=== PATIENT | female | born 1945 ===

== ENCOUNTER 2016-05-16 15:31 | Inpatient (IN) | payer BC, MEDICARE ==
[2016-05-16] MEDS ORDERED: Sodium Chloride 0.9% 1,000 ML IV ONE (15:46)
[2016-05-16 16:12] LABS: BASO % 0.4 % (0.0-2.0); EOS % 0.1 % (0.0-4.0); HEMATOCRIT 48.2 % (34.0-47.0); LYMPH # 0.7 K/uL (1.0-4.3); LYMPH % 5.9 % (20.0-40.0); MEAN CELL VOLUME 86.8 fL (81.0-99.0); MEAN CORPUSCULAR HEMOGLOBIN 28.5 pg (27.0-31.0); MEAN CORPUSCULAR HGB CONC 32.8 g/dL (33.0-37.0); MEAN PLATELET VOLUME 9.4 fL (7.2-11.7); MONO # 0.7 K/uL (0.0-0.8); NRBC % 0.2 % (0.0-2.0); PLATELET COUNT 263 K/uL (130-400)
[2016-05-16] MEDS ORDERED: Sodium Chloride 0.9% 1,000 ML ONE (16:14)
[2016-05-16 16:17] LABS: WHITE BLOOD COUNT 11.5 K/uL (4.8-10.8)
[2016-05-16 16:30] LABS: POTASSIUM 4.4 mmol/L (3.6-5.2)
[2016-05-16 16:32] LABS: BILIRUBIN,TOTAL 1.1 mg/dL (0.2-1.3)
[2016-05-16 16:33] LABS: ALB/GLOB RATIO 1.1 (1.0-2.1); CALCIUM 11.1 mg/dl (8.6-10.4)
--- NOTE | 2016-05-16 16:40 | RAD ---
HISTORY: SOB COMPARISON: 07/16/2015. TECHNIQUE: Chest PA and lateral FINDINGS: LUNGS: No focal airspace opacity. PLEURA: No significant pleural effusion identified. No pneumothorax apparent.Biapical pleural parenchymal thickening noted. CARDIOVASCULAR: Normal. OSSEOUS STRUCTURES: The osseous structures demonstrate degenerative changes. VISUALIZED UPPER ABDOMEN: Normal. OTHER FINDINGS: None. IMPRESSION: No focal airspace opacity.
--- NOTE | 2016-05-16 16:44 | C.PDOC ---
History Of Present Illness 70-year-old female, referred to the ED by PMD for abnormal EKG. Patient was seen for in her PMD office for nausea/vomiting, where she had an EKG done. Patient states her doctor thought that EKG was abnormal resulting in her being sent to the ED for evaluation. No other complaints at this time. Time Seen by Provider: 05/16/16 15:45 Chief Complaint (Nursing): Abdominal Pain History Per: Patient History/Exam Limitations: no limitations Onset/Duration Of Symptoms: Days (1) Location Of Pain/Discomfort: Diffuse Radiation Of Pain To:: Back Additional History Per: Patient Past Medical History Reviewed: Historical Data, Nursing Documentation, Vital Signs Vital Signs: Last Vital Signs Temp 97.4 F L 05/16/16 15:42 Pulse 92 H 05/16/16 15:42 Resp 18 05/16/16 15:42 BP 187/97 H 05/16/16 15:42 Pulse Ox 99 05/16/16 18:35 - Medical History PMH: Arthritis, HTN Other Surgeries: Hysterectomy Family History: States: Unknown Family Hx - Social History Hx Alcohol Use: No Hx Substance Use: No - Immunization History Hx Tetanus Toxoid Vaccination: No Hx Influenza Vaccination: No Hx Pneumococcal Vaccination: No Review Of Systems Except As Marked, All Systems Reviewed And Found Negative. Constitutional: Negative for: Fever, Chills Cardiovascular: Negative for: Chest Pain Respiratory: Negative for: Shortness of Breath Gastrointestinal: Positive for: Nausea, Vomiting Musculoskeletal: Negative for: Back Pain Skin: Negative for: Rash Neurological: Negative for: Weakness, Numbness, Headache, Dizziness Physical Exam - Physical Exam Appears: Non-toxic, No Acute Distress Skin: Warm, Dry, No Rash Head: Atraumatic, Normacephalic Eye(s): bilateral: Normal Inspection, PERRL Nose: Normal Oral Mucosa: Moist Lips: Normal Appearing Neck: Normal ROM Cardiovascular: Rhythm Regular Respiratory: Normal Breath Sounds, No Accessory Muscle Use Gastrointestinal/Abdominal: Soft, Tenderness (mild, diffuse), No Guarding, No Rebound Extremity: Normal ROM Neurological/Psych: Oriented x3, Normal Speech ED Course And Treatment - Laboratory Results Result Diagrams: 05/16/16 16:06 05/16/16 16:06 Lab Interpretation: No Acute Changes ECG: Interpreted By Me ECG Rhythm: Sinus Rhythm, ST/T Changes ECG Interpretation: No Acute Changes Rate From EC O2 Sat by Pulse Oximetry: 99 Pulse Ox Interpretation: Normal - Radiology CXR: Interpreted by Me CXR Interpretation: Yes: No Acute Disease Progress Note: Treated with IVF NSS, Treated with rocephin 1 gm IV Reassessment Condition: Improved - Physician Consult Information Physician Contacted: Handy Estevez Outcome Of Conversation: admit Disposition Discussed With DrTj: Handy Estevez Doctor Will See Patient In The: Hospital - Disposition Disposition: HOSPITALIZED Disposition Time: 19:00 Condition: STABLE - POA Present On Arrival: None - Clinical Impression Clinical Impression: Abdominal pain, Acute electrocardiogram changes - Scribe Statement The provider has reviewed the documentation as recorded by the Scribshaka Madden All medical record entries made by the Scribe were at my direction and personally dictated by me. I have reviewed the chart and agree that the record accurately reflects my personal performance of the history, physical exam, medical decision making, and the department course for this patient. I have also personally directed, reviewed, and agree with the discharge instructions and disposition. Decision To Admit - Pt Status Changed To: Hospital Disposition Of: Observation - . Bed Request Type: Telemetry Admitting Physician: Handy Estevez Patient Diagnosis: Abdominal pain, Acute electrocardiogram changes
[2016-05-16 16:45] LABS: TROPONIN I 0.023 ng/mL (0.00-0.120)
[2016-05-16 17:47] LABS: NEUTROPHIL 82 % (50-75); TOTAL CELLS COUNTED 100
[2016-05-16 17:55] LABS: RBC URINE 8 /hpf (0-3); URINE BACTERIA FEW (<OCC); URINE BILIRUBIN NEGATIVE (NEGATIVE); URINE BLOOD 1+ (NEGATIVE); URINE COLOR Yellow (YELLOW); URINE GLUCOSE (UA) NORMAL (Normal); URINE KETONE NEGATIVE (NEGATIVE); URINE LEUKOCYTE ESTERASE 3+ Leu/uL (Negative); URINE PROTEIN NEGATIVE (NEGATIVE); URINE UROBILINOGEN NORMAL mg/dL (0.2-1.0); WBC URINE 65 /hpf (0-5)
[2016-05-16] MEDS ORDERED: cefTRIAXone IV 1 gm in Dextros 50 ML IV ONE (18:01)
[2016-05-16] MEDS ORDERED: cefTRIAXone IV 1 gm in Dextros 50 ML IVPB ONE (18:07)
--- NOTE | 2016-05-16 18:49 | CT ---
PROCEDURE: CT Abdomen and Pelvis without intravenous or oral contrast HISTORY: Left flank pain. COMPARISON: None. TECHNIQUE: Technique Contiguous axial images of the abdomen and pelvis without intravenous or oral contrast. Radiation dose: Total exam DLP = 655.90 mGy-cm. FINDINGS: LOWER THORAX: Unremarkable. LIVER: Unremarkable. GALLBLADDER AND BILE DUCTS: Unremarkable. PANCREAS: Unremarkable. No ductal dilatation. SPLEEN: Unremarkable. No splenomegaly. ADRENALS: Unremarkable. KIDNEYS AND URETERS: Unremarkable. No hydronephrosis. BLADDER: Unremarkable. No calculus. REPRODUCTIVE: Surgically absent. APPENDIX: Unremarkable. Normal appendix. STOMACH AND BOWEL: Unremarkable. No obstruction. No gross mural thickening. PERITONEUM: Unremarkable. No significant fluid collection. No free air. LYMPH NODES: Unremarkable. No enlarged lymph nodes. VASCULATURE: Unremarkable. No aortic aneurysm. BONES: No acute fracture. Scoliosis, secondary degenerative change at multiple levels. OTHER FINDINGS: None . IMPRESSION: No significant or acute findings to account for/ related to the clinical presentation.
[2016-05-16] MEDS ORDERED: Pneumococcal 23-Valent Vaccine IM ONE (23:04)
[2016-05-17] MEDS ORDERED: Enoxaparin 40 mg Syringe SC SCH (10:00)
[2016-05-17] MEDS ORDERED: Pneumococcal 23-Valent Vaccine IM ONE (10:00)
[2016-05-17] MEDS ORDERED: Influenza Virus Vaccine 45 mcg/0.5 ml Syr IM ONE (10:00)
[2016-05-17 11:40] LABS: CHLORIDE 100 mmol/L (98-107); SODIUM 138 mmol/L (132-148)
[2016-05-17 11:41] LABS: POTASSIUM 3.1 mmol/L (3.6-5.2)
[2016-05-17 11:43] LABS: ALB/GLOB RATIO 1.2 (1.0-2.1); ALKALINE PHOSPHATASE 89 U/L (38-126); ALT/SGPT 28 U/L (9-52); AST/SGOT 22 U/L (14-36); BILIRUBIN,TOTAL 0.8 mg/dL (0.2-1.3); BLOOD UREA NITROGEN 21 mg/dL (7-17); CALCIUM 10.1 mg/dl (8.6-10.4); CARBON DIOXIDE 22 mmol/L (22-30); GFR AFRICAN-AMERICAN > 60; GLUCOSE,RANDOM 106 mg/dL (65-105); TOTAL PROTEIN 7.3 g/dL (6.3-8.3)
[2016-05-17] MEDS ORDERED: Potassium Chloride 20 mEq 100 ML IVPB ONE (12:02)
[2016-05-17 12:13] LABS: HEMATOCRIT 43.2 % (34.0-47.0); LYMPH # 0.5 K/uL (1.0-4.3); LYMPH % 4.7 % (20.0-40.0); MEAN CELL VOLUME 86.3 fL (81.0-99.0); MEAN CORPUSCULAR HEMOGLOBIN 29.4 pg (27.0-31.0); MEAN CORPUSCULAR HGB CONC 34.1 g/dL (33.0-37.0); MEAN PLATELET VOLUME 9.4 fL (7.2-11.7); MONO # 0.7 K/uL (0.0-0.8); MONO % 6.9 % (0.0-10.0); NRBC % 0.2 % (0.0-2.0); PLATELET COUNT 195 K/uL (130-400); RED CELL DISTRIBUTION WIDTH 13.6 % (11.5-14.5); WHITE BLOOD COUNT 10.1 K/uL (4.8-10.8)
--- NOTE | 2016-05-17 12:26 | CP.PCM.HP ---
History of Present Illness - History of Present Illness History of Present Illness: 70 years old female with PMHx significant for HTN. Patient presented to Dr Estevez' office ocmplaining of nausea, vomiting, diarrhea abdominal pain and generalized weakness. Initial evaluation showed Epigastric tenderness and tachycardia. ECG read Acute DC. Ambulance called and patient sent to the Hospital for further evaluation. Initial evaluation in the ER showed Low Bicarbonate (Metabolic Acidosis), High WBC count with Left Shift and UA with signs of infection (UTI). Present on Admission - Present on Admission Any Indicators Present on Admission: No Review of Systems - Review of Systems Systems not reviewed;Unavailable: Acuity of Condition - Constitutional Constitutional: Fatigue, Malaise, Weakness - Cardiovascular Cardiovascular: Dyspnea, Dyspnea on Exertion, Rapid Heart Rate - Respiratory Respiratory: Dyspnea - Gastrointestinal Gastrointestinal: Abdominal Pain, Change in Bowel Habits, Diarrhea, Dyspepsia, Vomiting Past Patient History - Infectious Disease Hx of Infectious Diseases: None - Past Medical History & Family History Past Medical History?: Yes - Past Social History Smoking Status: Never Smoked - CARDIAC Hx Hypertension: Yes - PULMONARY Hx Respiratory Disorders: No - NEUROLOGICAL Hx Neurological Disorder: No - HEENT Hx Cataracts: Yes - RENAL Hx Chronic Kidney Disease: No - ENDOCRINE/METABOLIC Hx Endocrine Disorders: No - HEMATOLOGICAL/ONCOLOGICAL Hx Blood Disorders: No - INTEGUMENTARY Hx Dermatological Problems: No - MUSCULOSKELETAL/RHEUMATOLOGICAL Hx Arthritis: Yes Hx Falls: No - GASTROINTESTINAL Hx Gastrointestinal Disorders: No - GENITOURINARY/GYNECOLOGICAL Hx Genitourinary Disorders: No - PSYCHIATRIC Hx Psychophysiologic Disorder: No Hx Substance Use: No - SURGICAL HISTORY Hx Hysterectomy: Yes - ANESTHESIA Hx Anesthesia: Yes Hx Anesthesia Reactions: No Hx Malignant Hyperthermia: No Meds Allergies/Adverse Reactions: Allergies Allergy/AdvReac Type Severity Reaction Status Date / Time No Known Allergies Allergy Verified 07/16/15 13:34 Physical Exam - Constitutional Appears: In Acute Distress - Head Exam Head Exam: ATRAUMATIC, NORMAL INSPECTION, NORMOCEPHALIC - Eye Exam Eye Exam: EOMI, Normal appearance, PERRL - ENT Exam ENT Exam: Mucous Membranes Moist, Normal Exam - Neck Exam Neck exam: Positive for: Normal Inspection - Respiratory Exam Respiratory Exam: Clear to Auscultation Bilateral, Prolonged Expiratory Phase - Cardiovascular Exam Cardiovascular Exam: Tachycardia, REGULAR RHYTHM, +S1, +S2 - GI/Abdominal Exam GI & Abdominal Exam: Soft, Tenderness - Extremities Exam Extremities exam: Positive for: full ROM, normal inspection - Psychiatric Exam Psychiatric exam: Anxious Results - Vital Signs Recent Vital Signs: Last Vital Signs Temp 98.3 F 05/17/16 09:50 Pulse 93 H 05/17/16 09:50 Resp 20 05/17/16 08:53 BP 121/75 05/17/16 10:30 Pulse Ox 98 05/17/16 08:53 - Labs Result Diagrams: 05/17/16 11:20 05/17/16 11:20 Labs: Laboratory Results - last 24 hr 05/17/16 05/17/16 06:09 11:20 WBC 10.1 RBC 5.01 Hgb 14.7 Hct 43.2 MCV 86.3 MCH 29.4 MCHC 34.1 RDW 13.6 Plt Count 195 MPV 9.4 Neut % (Auto) 88.4 H Lymph % (Auto) 4.7 L [place] % (Auto) 6.9 Eos % (Auto) 0.0 Baso % (Auto) 0.0 Neut # 9.0 H Lymph # 0.5 L [place] # 0.7 Eos # 0.0 Baso # 0.0 Sodium 138 Potassium 3.1 L Chloride 100 Carbon Dioxide 22 Anion Gap 19 BUN 21 H Creatinine 0.7 Est GFR ( Amer) > 60 Est GFR (Non-Af Amer) > 60 Random Glucose 106 H Lactic Acid 1.3 Calcium 10.1 Total Bilirubin 0.8 AST 22 ALT 28 Alkaline Phosphatase 89 Total Creatine Kinase 50 CK-MB (Mass) 0.66 Troponin I, Quant 0.0240 Total Protein 7.3 Albumin 4.0 Globulin 3.4 Albumin/Globulin Ratio 1.2 Assessment & Plan (1) Abdominal pain Assessment and Plan: 1. Abdominal Pain. Nausea. Vomiting. Diarrhea. Dark stools. Leukocytosis. Neutrophilia. Metabolic acidosis. UTI. SIRS. Sepsis. CBC Diff. CMP. Blood Cultures x 2. Lactic acid. UA C&S. Stool C. Diff. CXR. GI evaluation. 2. Hypokalemia. Potassium replacement IV x 1, the PO. BMP in am. 3. Abnormal ECG. Cardiac enzymes negative x 3. Cardiology evaluation. 4. HTN. Continue same treatment. Status: Acute Priority: High
[2016-05-17 12:35] LABS: NEUTROPHIL 75 % (50-75); REACTIVE LYMPHOCYTES 2 % (0-0); TOTAL CELLS COUNTED 100
--- NOTE | 2016-05-17 13:19 | CP.PCM.CON ---
History of Present Illness - History of Present Illness History of Present Illness: Asked by Dr Velasco to see pt for vomiting , diarrhea, and black stools. 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 Pt reports 3 days of feeling ill with nausea, vomiting, diarrhea and weakness. She took pepto bismo;l yesterday and had black stools. N/V- multiple. Diarrhea- watery, mult x 3 days. Weakness.. Abdominal pain- epigastric x 3 days- crampy. Denies travel, antibiotics. Review of Systems - Constitutional Constitutional: Fever, Weakness. absent: Chills - EENT Eyes: absent: Blurred Vision Nose/Mouth/Throat: absent: Epistaxis - Cardiovascular Cardiovascular: Chest Pain, Dyspnea, Lightheadedness. absent: Palpitations - Respiratory Respiratory: absent: Cough, Dyspnea, Hemoptysis, Wheezing - Gastrointestinal Gastrointestinal: Abdominal Pain, Belching, Bloating, Change in Stool Character , Cramping, Diarrhea, Melena, Nausea, Vomiting. absent: Coffee Ground Emesis, Dysphagia, Hematemesis, Hematochezia - Genitourinary Genitourinary: absent: Hematuria - Musculoskeletal Musculoskeletal: absent: Arthralgias - Integumentary Integumentary: absent: Jaundice - Neurological Neurological: absent: Convulsions Past Patient History - Infectious Disease Hx of Infectious Diseases: None - Past Medical History & Family History Past Medical History?: Yes - Past Social History Smoking Status: Never Smoked - CARDIAC Hx Hypertension: Yes - PULMONARY Hx Respiratory Disorders: No - NEUROLOGICAL Hx Neurological Disorder: No - HEENT Hx Cataracts: Yes - RENAL Hx Chronic Kidney Disease: No - ENDOCRINE/METABOLIC Hx Endocrine Disorders: No - HEMATOLOGICAL/ONCOLOGICAL Hx Blood Disorders: No - INTEGUMENTARY Hx Dermatological Problems: No - MUSCULOSKELETAL/RHEUMATOLOGICAL Hx Arthritis: Yes Hx Falls: No - GASTROINTESTINAL Hx Gastrointestinal Disorders: No - GENITOURINARY/GYNECOLOGICAL Hx Genitourinary Disorders: No - PSYCHIATRIC Hx Psychophysiologic Disorder: No Hx Substance Use: No - SURGICAL HISTORY Hx Hysterectomy: Yes - ANESTHESIA Hx Anesthesia: Yes Hx Anesthesia Reactions: No Hx Malignant Hyperthermia: No Meds Allergies/Adverse Reactions: Allergies Allergy/AdvReac Type Severity Reaction Status Date / Time No Known Allergies Allergy Verified 07/16/15 13:34 - Medications Medications: Current Medications Amlodipine Besylate (Norvasc) 5 mg PO DAILY [facility] Last Admin: 05/17/16 10:30 Dose: 5 mg Carvedilol (Coreg) 12.5 mg PO Q12 [facility] Last Admin: 05/17/16 10:30 Dose: 12.5 mg Heparin Sodium (Porcine) (Heparin) 5,000 units SC Q12 [facility] Last Admin: 05/17/16 10:31 Dose: Not Given Hydrochlorothiazide (Hydrodiuril) 25 mg PO DAILY [facility] Last Admin: 05/17/16 10:30 Dose: 25 mg Ceftriaxone Sodium (Rocephin Iv 1 Gm Duplex) 50 mls @ 100 mls/hr IVPB Q24H [facility] Potassium Chloride (Potassium Chloride 20 Meq/100 Ml) 100 mls @ 50 mls/hr IVPB ONCE ONE Stop: 05/17/16 14:01 Last Admin: 05/17/16 13:03 Dose: 50 mls/hr Losartan Potassium (Cozaar) 100 mg PO DAILY [facility] Last Admin: 05/17/16 10:30 Dose: 100 mg Pantoprazole Sodium (Protonix Inj) 40 mg IVP Q12 [facility] Last Admin: 05/17/16 13:05 Dose: 40 mg Physical Exam - Constitutional Additional comments: Appears ill and weak. - Neck Exam Neck exam: Positive for: Full Rom - Respiratory Exam Respiratory Exam: Clear to Auscultation Bilateral - Cardiovascular Exam Cardiovascular Exam: RRR - GI/Abdominal Exam GI & Abdominal Exam: Normal Bowel Sounds, Soft, Tenderness. absent: Distended, Guarding, Mass, Rebound Additional comments: Mild epig tenderness. - Extremities Exam Extremities exam: Positive for: normal inspection - Back Exam Back exam: absent: CVA tenderness (L), CVA tenderness (R) - Neurological Exam Neurological exam: Alert, Oriented x3 Results - Vital Signs Recent Vital Signs: Last Vital Signs Temp 98.3 F 05/17/16 09:50 Pulse 93 H 05/17/16 09:50 Resp 20 05/17/16 08:53 BP 121/75 05/17/16 10:30 Pulse Ox 98 05/17/16 08:53 - Labs Result Diagrams: 05/17/16 11:20 05/17/16 11:20 Assessment & Plan (1) Abdominal pain Assessment and Plan: Likely gastroenteritis. Consider gastritis, or ulcer. Status: Acute Priority: High (2) Acute electrocardiogram changes Status: Acute (3) Vomiting Assessment and Plan: Gastroenteritis. Consider sepsis, infection. Status: Acute (4) Diarrhea Assessment and Plan: Gastroenteritis Status: Acute (5) Weakness Status: Acute (6) UTI (urinary tract infection) Status: Acute (7) Melena Assessment and Plan: I doubt melena. Dark stool from pepto bismol. Patients present is most consistent with infecton, UTi, acidosis, gastroenterits , than GI bleed. REC: Hold heparin. Check stool tests, Check labs, protonix, antibiotics. Status: Acute
--- NOTE | 2016-05-17 16:08 | CARD ---
APPROVED REPORT EKG Measurement Heart [id number] <Conclusion> Normal sinus rhythm Inferior infarct, age undetermined Abnormal ECG
[2016-05-17] MEDS: cefTRIAXone IV 1 gm in Dextros 50 ML IVPB SCH (17:48)
[2016-05-18 06:26] LABS: POTASSIUM 3.1 mmol/L (3.6-5.2)
[2016-05-18 06:29] LABS: CALCIUM 9.6 mg/dl (8.6-10.4)
[2016-05-18 07:20] LABS: MEAN CELL VOLUME 86.4 fL (81.0-99.0); MEAN CORPUSCULAR HGB CONC 33.5 g/dL (33.0-37.0); MEAN PLATELET VOLUME 9.9 fL (7.2-11.7); PLATELET COUNT 194 K/uL (130-400); RED CELL DISTRIBUTION WIDTH 13.9 % (11.5-14.5); WHITE BLOOD COUNT 7.5 K/uL (4.8-10.8)
--- NOTE | 2016-05-18 08:17 | CP.PCM.PN ---
Subjective - Date & Time of Evaluation Date of Evaluation: 05/18/16 Time of Evaluation: 07:45 - Subjective Subjective: F/U diarrhea. Denies RB, melena, fever, SOB, OSUNA, cough, hematuria, hematemesis. Less abdom pain. Feels less weak. Objective - Vital Signs/Intake and Output Vital Signs (last 24 hours): Temp Pulse Resp BP Pulse Ox 98.7 F 73 20 90/59 L 96 05/17/16 23:10 05/17/16 23:10 05/17/16 23:10 05/17/16 23:10 05/17/16 23:10 Intake and Output: 05/18/16 05/18/16 06:59 18:59 Intake Total 250 120 Balance 250 120 - Medications Medications: Current Medications Amlodipine Besylate (Norvasc) 5 mg PO DAILY [facility] Last Admin: 05/17/16 10:30 Dose: 5 mg Carvedilol (Coreg) 12.5 mg PO Q12 [facility] Last Admin: 05/17/16 21:34 Dose: 12.5 mg Heparin Sodium (Porcine) (Heparin) 5,000 units SC Q12 [facility] Last Admin: 05/17/16 21:35 Dose: 5,000 units Hydrochlorothiazide (Hydrodiuril) 25 mg PO DAILY [facility] Last Admin: 05/17/16 10:30 Dose: 25 mg Ceftriaxone Sodium (Rocephin Iv 1 Gm Duplex) 50 mls @ 100 mls/hr IVPB Q24H [facility] Last Admin: 05/17/16 17:48 Dose: 100 mls/hr Losartan Potassium (Cozaar) 100 mg PO DAILY [facility] Last Admin: 05/17/16 10:30 Dose: 100 mg Pantoprazole Sodium (Protonix Inj) 40 mg IVP Q12 [facility] Last Admin: 05/17/16 21:35 Dose: 40 mg - Labs Labs: 05/18/16 06:02 05/18/16 06:02 - Constitutional Appears: No Acute Distress - Respiratory Exam Respiratory Exam: Clear to Ausculation Bilateral - Cardiovascular Exam Cardiovascular Exam: RRR - GI/Abdominal Exam GI & Abdominal Exam: Soft, Tenderness, Normal Bowel Sounds Additional comments: minimal tenderness mid - Extremities Exam Extremities Exam: absent: Calf Tenderness - Neurological Exam Neurological Exam: Alert, Oriented x3 Assessment and Plan (1) Abdominal pain Assessment & Plan: gastroenteritis. Status: Acute (2) Acute electrocardiogram changes Status: Acute (3) Vomiting Assessment & Plan: gastroenteritis. UTI. Status: Acute (4) Diarrhea Assessment & Plan: Gastroenteritis. Check c difficile. Status: Acute (5) Weakness Status: Acute (6) UTI (urinary tract infection) Status: Acute (7) Melena Assessment & Plan: i doubt GI bleed. Had pepto bismol. Check Hb. Status: Acute
--- NOTE | 2016-05-18 11:25 | RAD ---
HISTORY: Abnormal CXR. F/U COMPARISON: No prior. TECHNIQUE: Chest PA and lateral FINDINGS: LUNGS: No focal airspace opacity. PLEURA: No significant pleural effusion identified. No pneumothorax apparent. CARDIOVASCULAR: Normal. OSSEOUS STRUCTURES: The osseous structures demonstrate degenerative changes. VISUALIZED UPPER ABDOMEN: Normal. OTHER FINDINGS: None. IMPRESSION: No focal airspace opacity.
[2016-05-18 12:14] LABS: NEUTROPHIL 70 % (50-75); TOTAL CELLS COUNTED 100
[2016-05-18] MEDS: Potassium Chloride 20 mEq 100 ML IVPB SCH ×2 (12:35→14:01)
[2016-05-18] MEDS ORDERED: Potassium Chloride 20 mEq/15 ml LIQ UD PO ONE (14:15)
--- NOTE | 2016-05-18 16:27 | CP.PCM.CON ---
History of Present Illness - History of Present Illness History of Present Illness: 70-year-old female, referred to the ED by PMD for abnormal EKG. Patient was seen for in her PMD office for nausea/vomiting, where she had an EKG done. Patient states her doctor thought that EKG was abnormal resulting in her being sent to the ED for evaluation. has severe persistent diarrhea with generalized weakness and discomfort admitted with severe dehydration denies travel, ill contacts or reheated foods c diff negative - Medical History PMH: Arthritis, HTN Other Surgeries: Hysterectomy Family History: States: Unknown Family Hx Review of Systems - Constitutional Constitutional: As Per HPI, Anorexia, Chills, Malaise - EENT Eyes: absent: As Per HPI, Blind Spots, Blurred Vision, Change in Vision, Decreased Night Vision, Diplopia, Discharge, Dry Eye, Exophthalmos, Floaters, Irritation, Itchy Eyes, Loss of Peripheral Vision, Pain, Photophobia, Requires Corrective Lenses, Sees Flashes, Spots in Vision, Tunnel Vision, Other Visual Disturbances, Loss of Vision, Other Ears: absent: As Per HPI, Decreased Hearing, Ear Discharge, Ear Pain, Tinnitus, Abnormal Hearing, Disequilibrium, Dizziness, Other Nose/Mouth/Throat: absent: As Per HPI, Epistaxis, Nasal Congestion, Nasal Discharge, Nasal Obstruction, Nasal Trauma, Nose Pain, Post Nasal Drip, Sinus Pain, Sinus Pressure, Bleeding Gums, Change in Voice, Dental Pain, Dry Mouth, Dysphagia, Halitosis, Hoarsness, Lip Swelling, Mouth Lesions, Mouth Pain, Odynophagia, Sore Throat, Throat Swelling, Tongue Swelling, Facial Pain, Neck Pain, Neck Mass, Other - Breasts Breasts: absent: As Per HPI, Change in Shape, Mass, Pain, Nipple Discharge, Nipple Inversion, Skin Changes, Swelling, Other - Cardiovascular Cardiovascular: absent: As Per HPI, Acrocyanosis, Chest Pain, Chest Pain at Rest , Chest Pain with Activity, Claudication, Diaphoresis, Dyspnea, Dyspnea on Exertion, Edema, Irregular Heart Rhythm, Pain Radiating to Arm/Neck/Jaw, Leg Edema, Leg Ulcers, Lightheadedness, Orthopnea, Palpitations, Paroxysmal Nocturnal Dyspnea, Pedal Edema, Radiating Pain, Rapid Heart Rate, Slow Heart Rate, Syncope, Other - Respiratory Respiratory: absent: As Per HPI, Cough, Dyspnea, Hemoptysis, Dyspnea on Exertion , Wheezing, Snoring, Stridor, Pain on Inspiration, Chest Congestion, Excessive Mucous Production, Change in Mucous Color, Pain with Coughing, Other - Gastrointestinal Gastrointestinal: As Per HPI - Genitourinary Genitourinary: As Per HPI - Reproductive: Female Reproductive:Female: absent: As Per HPI, Amenorrhea, Amenorrhea/ Control, Currently Menstual, Cycle <21 Days, Cycle >35 Days, Cycle Variable, Menses 1-7 Days, Menses >/= 8 Days, Menses Variable, Cycle > 4 Weeks Between, No Menses for 6 Months, Heavy Menses, Light Menses, Normal Menses, Spotting Between Cycles , S/P Hysterectomy, Menopausal, Post Menopausal, Premenarche, Abnormal Vaginal Bleeding, Dysmenorrhea, Dyspareunia, Genital Lesions, Genital Pruritis, Pelvic Pain, Prolapse Symptoms, Sexual Dysfunction, Vaginal Discharge, Vaginal Dryness , Vaginal Odor, Vaginal Pruritis, Other - Menstruation Menstruation: absent: As Per HPI, Amenorrhea, Amenorrhea/ Control, Currently Menstual, Cycle <21 Days, Cycle >35 Days, Cycle Variable, Menses 1-7 Days, Menses >/= 8 Days, Menses Variable, Cycle > 4 Weeks Between, No Menses for 6 Months, Heavy Menses, Light Menses, Normal Menses, Spotting Between Cycles , S/P Hysterectomy, Menopausal, Post Menopausal, Premenarche, Abnormal Vaginal Bleeding, Dysmenorrhea, Other - Musculoskeletal Musculoskeletal: absent: As Per HPI, Abnormal Gait, Arthralgias, Atrophy, Back Pain, Deformity, Joint Swelling, Limited Range of Motion, Loss of Height, Muscle Cramps, Muscle Weakness, Myalgias, Neck Pain, Numbness, Radiating Pain into Limb, Stiffness, Tingling, Other - Integumentary Integumentary: absent: As Per HPI, Acne, Alopecia, Bleeding Lesions, Change in Hair, Change in Nails, Change in Pigmentation, Changing Lesions, Dry Skin, Erythema, Furuncle, Hirsutism, Lesions, New Lesions, Non-Healing Lesions, Photosensitivity, Pruritus, Rash, Skin Pain, Skin Ulcer, Sores, Striae, Swelling , Unusual Bruising, Wounds, Jaundice, Other - Neurological Neurological: absent: As Per HPI, Abnormal Gait, Abnormal Hearing, Abnormal Movements, Abnormal Speech, Behavioral Changes, Burning Sensations, Confusion, Convulsions, Disequilibrium, Dizziness, Numbness, Focal Weakness, Frequent Falls , Headaches, Lack of Coordination, Loss of Vision, Memory Loss, Paresthesias, Radicular Pain, Restless Legs, Sensory Deficit, Syncope, Tingling, Tremor, Vertigo, Weakness, Other Visual Disturbances, Other - Psychiatric Psychiatric: absent: As Per HPI, Abnormal Sleep Pattern, Anhedonia, Anxiety, Auditory Hallucinations, Behavioral Changes, Change in Appetite, Change in Libido, Confusion, Depression, Difficulty Concentrating, Hallucinations, Homicidal Ideation, Hopelessness, Irritability, Memory Loss, Mood Swings, Panic Attacks, Paranoia, Suicidal Ideation, Visual Hallucinations, Tactile Hallucinations, Other - Endocrine Endocrine: absent: As Per HPI, Change in Body Appearance, Change in Libido, Cold Intolorance, Deepening of Voice, Excessive Sweating, Fatigue, Flushing, Heat Intolorance, Increase in Ring/Shoe/Hat Size, Palpitations, Polydipsia, Polyphagia, Polyuria, Other Past Patient History - Infectious Disease Hx of Infectious Diseases: None - Past Medical History & Family History Past Medical History?: Yes - Past Social History Smoking Status: Never Smoked - CARDIAC Hx Hypertension: Yes - PULMONARY Hx Respiratory Disorders: No - NEUROLOGICAL Hx Neurological Disorder: No - HEENT Hx Cataracts: Yes - RENAL Hx Chronic Kidney Disease: No - ENDOCRINE/METABOLIC Hx Endocrine Disorders: No - HEMATOLOGICAL/ONCOLOGICAL Hx Blood Disorders: No - INTEGUMENTARY Hx Dermatological Problems: No - MUSCULOSKELETAL/RHEUMATOLOGICAL Hx Arthritis: Yes Hx Falls: No - GASTROINTESTINAL Hx Gastrointestinal Disorders: No - GENITOURINARY/GYNECOLOGICAL Hx Genitourinary Disorders: No - PSYCHIATRIC Hx Psychophysiologic Disorder: No Hx Substance Use: No - SURGICAL HISTORY Hx Hysterectomy: Yes - ANESTHESIA Hx Anesthesia: Yes Hx Anesthesia Reactions: No Hx Malignant Hyperthermia: No Meds Allergies/Adverse Reactions: Allergies Allergy/AdvReac Type Severity Reaction Status Date / Time No Known Allergies Allergy Verified 07/16/15 13:34 - Medications Medications: Current Medications Amlodipine Besylate (Norvasc) 5 mg PO DAILY [facility] Last Admin: 05/18/16 12:11 Dose: Not Given Carvedilol (Coreg) 12.5 mg PO Q12 [facility] Last Admin: 05/18/16 09:21 Dose: 12.5 mg Hydrochlorothiazide (Hydrodiuril) 25 mg PO DAILY [facility] Last Admin: 05/18/16 12:11 Dose: Not Given Ceftriaxone Sodium (Rocephin Iv 1 Gm Duplex) 50 mls @ 100 mls/hr IVPB Q24H [facility] Last Admin: 05/17/16 17:48 Dose: 100 mls/hr Potassium Chloride (Potassium Chloride 20 Meq/100 Ml) 100 mls @ 50 mls/hr IVPB Q2H [facility] Stop: 05/18/16 16:59 Last Admin: 05/18/16 14:01 Dose: Not Given Loperamide HCl (Imodium) 4 mg PO PRN PRN PRN Reason: Diarrhea Last Admin: 05/18/16 12:14 Dose: 4 mg Losartan Potassium (Cozaar) 100 mg PO DAILY [facility] Last Admin: 05/18/16 12:10 Dose: Not Given Pantoprazole Sodium (Protonix Inj) 40 mg IVP Q12 [facility] Last Admin: 05/18/16 09:21 Dose: 40 mg Potassium Chloride (Potassium Chloride Oral Soln) 20 meq PO DAILY [facility] Physical Exam - Constitutional Appears: Non-toxic, Chronically Ill - Head Exam Head Exam: ATRAUMATIC, NORMAL INSPECTION, NORMOCEPHALIC - Eye Exam Eye Exam: EOMI, PERRL. absent: Scleral icterus - ENT Exam ENT Exam: Mucous Membranes Dry, Normal External Ear Exam, Normal Oropharynx - Neck Exam Neck exam: Negative for: Lymphadenopathy, Thyromegaly - Respiratory Exam Respiratory Exam: Decreased Breath Sounds, Clear to Auscultation Bilateral - Cardiovascular Exam Cardiovascular Exam: Tachycardia, REGULAR RHYTHM, +S1, +S2 - GI/Abdominal Exam GI & Abdominal Exam: Diminished Bowel Sounds, Distended, Guarding, Soft, Tenderness. absent: Organomegaly, Pulsatile Mass, Rebound, Rigid - Rectal Exam Rectal Exam: Deferred - Exam Exam: NORMAL INSPECTION - Extremities Exam Extremities exam: Positive for: pedal pulses present. Negative for: calf tenderness, pedal edema, tenderness - Back Exam Back exam: absent: CVA tenderness (L), CVA tenderness (R), paraspinal tenderness - Neurological Exam Neurological exam: Alert, CN II-XII Intact, Oriented x3, Reflexes Normal - Psychiatric Exam Psychiatric exam: Depressed - Skin Skin Exam: Dry Results - Vital Signs Recent Vital Signs: Last Vital Signs Temp 98.1 F 05/18/16 15:50 Pulse 57 L 05/18/16 15:50 Resp 20 05/18/16 15:50 BP 90/56 L 05/18/16 15:50 Pulse Ox 98 05/18/16 15:50 - Labs Result Diagrams: 05/18/16 06:02 05/18/16 06:02 Labs: Laboratory Results - last 24 hr 05/17/16 05/17/16 05/17/16 16:04 22:39 Unknown WBC RBC Hgb Hct MCV MCH MCHC RDW Plt Count MPV Neutrophils % (Manual) Band Neutrophils % Lymphocytes % (Manual) Monocytes % (Manual) Platelet Estimate RBC Morphology Sodium Potassium Chloride Carbon Dioxide Anion Gap BUN Creatinine Est GFR ( Amer) Est GFR (Non-Af Amer) Random Glucose Calcium Lipase 83 Stool Occult Blood Negative Stool Leukocytes, Qual Negative C. difficile Ag & Toxin Negative 05/18/16 06:02 WBC 7.5 RBC 4.86 Hgb 14.1 Hct 42.0 MCV 86.4 MCH 29.0 MCHC 33.5 RDW 13.9 Plt Count 194 MPV 9.9 Neutrophils % (Manual) 70 Band Neutrophils % 7 H Lymphocytes % (Manual) 17 L Monocytes % (Manual) 6 Platelet Estimate Normal RBC Morphology Normal Sodium 137 Potassium 3.1 L Chloride 101 Carbon Dioxide 20 L Anion Gap 19 BUN 36 H Creatinine 1.2 Est GFR ( Amer) 54 Est GFR (Non-Af Amer) 45 Random Glucose 97 Calcium 9.6 Lipase Stool Occult Blood Stool Leukocytes, Qual C. difficile Ag & Toxin Assessment & Plan (1) Abdominal pain Status: Acute Priority: High (2) Acute electrocardiogram changes Status: Acute (3) Diarrhea Status: Acute (4) Melena Status: Acute (5) Sepsis Status: Acute (6) Systemic inflammatory response syndrome (SIRS) due to infection Status: Acute (7) UTI (urinary tract infection) Status: Acute (8) Vomiting Status: Acute - Assessment and Plan (Free Text) Assessment: r/o viral syndrome await cultures and serologies GI on board needs aggressive hydration and careful monitoring agree with your plan of care
[2016-05-18] MEDS: metroNIDAZOLE IV 500 mg/100 ml 100 ML IVPB SCH ×2 (17:45→21:44)
[2016-05-18] MEDS: cefTRIAXone IV 1 gm in Dextros 50 ML IVPB SCH (18:55)
[2016-05-18] MEDS ORDERED: Sodium Chloride 0.9% 1,000 ML IV SCH (20:00)
--- NOTE | 2016-05-18 20:12 | CP.PCM.PN ---
Subjective - Date & Time of Evaluation Date of Evaluation: 05/18/16 Time of Evaluation: 20:15 - Subjective Subjective: Patient complaints of diarrhea, feels weak, poor oral intake. Objective - Vital Signs/Intake and Output Vital Signs (last 24 hours): Temp Pulse Resp BP Pulse Ox 98.1 F 57 L 20 90/56 L 98 05/18/16 15:50 05/18/16 15:50 05/18/16 15:50 05/18/16 15:50 05/18/16 15:50 Intake and Output: 05/18/16 05/19/16 18:59 06:59 Intake Total 820 Balance 820 - Medications Medications: Current Medications Amlodipine Besylate (Norvasc) 5 mg PO DAILY [facility] Last Admin: 05/18/16 12:11 Dose: Not Given Carvedilol (Coreg) 12.5 mg PO Q12 [facility] Last Admin: 05/18/16 09:21 Dose: 12.5 mg Hydrochlorothiazide (Hydrodiuril) 25 mg PO DAILY [facility] Last Admin: 05/18/16 12:11 Dose: Not Given Ceftriaxone Sodium (Rocephin Iv 1 Gm Duplex) 50 mls @ 100 mls/hr IVPB Q24H [facility] Last Admin: 05/18/16 18:55 Dose: 100 mls/hr Metronidazole (Flagyl) 100 mls @ 100 mls/hr IVPB Q8 [facility] Last Admin: 05/18/16 17:45 Dose: 100 mls/hr Potassium Chloride 10 meq/ (Sodium Chloride) 1,005 mls @ 120 mls/hr IV .Q8H23M [facility] Loperamide HCl (Imodium) 4 mg PO PRN PRN PRN Reason: Diarrhea Last Admin: 05/18/16 18:04 Dose: 4 mg Losartan Potassium (Cozaar) 100 mg PO DAILY [facility] Last Admin: 05/18/16 12:10 Dose: Not Given Pantoprazole Sodium (Protonix Inj) 40 mg IVP Q12 [facility] Last Admin: 05/18/16 09:21 Dose: 40 mg - Labs Labs: 05/18/16 06:02 05/18/16 06:02 - Constitutional Appears: Non-toxic - Head Exam Head Exam: ATRAUMATIC, NORMAL INSPECTION, NORMOCEPHALIC - Eye Exam Eye Exam: EOMI, Normal appearance Pupil Exam: PERRL - Neck Exam Neck Exam: Full ROM, Normal Inspection - Respiratory Exam Respiratory Exam: Clear to Ausculation Bilateral, NORMAL BREATHING PATTERN - Cardiovascular Exam Cardiovascular Exam: REGULAR RHYTHM, +S1, +S2 - GI/Abdominal Exam GI & Abdominal Exam: Soft, Normal Bowel Sounds - Extremities Exam Extremities Exam: Full ROM, Normal Inspection - Neurological Exam Neurological Exam: Alert, Awake, CN II-XII Intact, Normal Gait, Oriented x3 Assessment and Plan (1) Abdominal pain Status: Acute (2) Sepsis Assessment & Plan: 1. UTI. Sepsis. Diarrhea. Hypotension. NS 120 ml/hour. NS bolus 500 ml x 1. Continue Rocephin. ID following. Blood Cultures pending. GI on board. CBC Diff in AM 2. Hypokalemia. Potassium 10 meq on NS BMP in am. Status: Acute
[2016-05-18] MEDS ORDERED: Sodium Chloride 0.9% 500 ML IV ONE (20:19)
[2016-05-19] MEDS: metroNIDAZOLE IV 500 mg/100 ml 100 ML IVPB SCH ×3 (06:39→21:13)
[2016-05-19 07:20] LABS: EOS % 0.1 % (0.0-4.0); LYMPH # 1.1 K/uL (1.0-4.3); LYMPH % 20.5 % (20.0-40.0); MEAN CELL VOLUME 86.3 fL (81.0-99.0); MEAN CORPUSCULAR HEMOGLOBIN 29.1 pg (27.0-31.0); MEAN CORPUSCULAR HGB CONC 33.8 g/dL (33.0-37.0); MEAN PLATELET VOLUME 9.5 fL (7.2-11.7); MONO # 0.6 K/uL (0.0-0.8); MONO % 10.2 % (0.0-10.0); NRBC % 0.1 % (0.0-2.0); RED CELL DISTRIBUTION WIDTH 13.8 % (11.5-14.5); WHITE BLOOD COUNT 5.6 K/uL (4.8-10.8)
[2016-05-19 07:29] LABS: CHLORIDE 107 mmol/L (98-107); POTASSIUM 3.2 mmol/L (3.6-5.2); SODIUM 139 mmol/L (132-148)
[2016-05-19 07:32] LABS: BLOOD UREA NITROGEN 22 mg/dL (7-17); CARBON DIOXIDE 18 mmol/L (22-30); GFR AFRICAN-AMERICAN > 60; GLUCOSE,RANDOM 85 mg/dL (65-105)
[2016-05-19 07:33] LABS: CALCIUM 9.4 mg/dl (8.6-10.4)
[2016-05-19] MEDS ORDERED: Potassium Chloride 20 mEq/15 ml LIQ UD PO SCH ×2 (10:00)
--- NOTE | 2016-05-19 10:10 | CP.PCM.PN ---
Subjective - Date & Time of Evaluation Date of Evaluation: 05/19/16 Time of Evaluation: 09:50 - Subjective Subjective: F/U diarrhea. Family is present. Pt reports feeling better. Reports less diarrhea and less abdom pain. Denies RB, melena, abdom pain, fever, chills CP, SONB, OSUNA, cough Objective - Vital Signs/Intake and Output Vital Signs (last 24 hours): Temp Pulse Resp BP Pulse Ox 97.7 F 65 20 117/68 96 05/19/16 07:50 05/19/16 07:50 05/19/16 07:50 05/19/16 07:50 05/19/16 07:50 Intake and Output: 05/19/16 05/19/16 06:59 18:59 Intake Total 940 Balance 940 - Medications Medications: Current Medications Amlodipine Besylate (Norvasc) 5 mg PO DAILY [facility] Last Admin: 05/18/16 12:11 Dose: Not Given Carvedilol (Coreg) 12.5 mg PO Q12 [facility] Last Admin: 05/18/16 22:00 Dose: Not Given Hydrochlorothiazide (Hydrodiuril) 25 mg PO DAILY [facility] Last Admin: 05/18/16 12:11 Dose: Not Given Ceftriaxone Sodium (Rocephin Iv 1 Gm Duplex) 50 mls @ 100 mls/hr IVPB Q24H [facility] Last Admin: 05/18/16 18:55 Dose: 100 mls/hr Metronidazole (Flagyl) 100 mls @ 100 mls/hr IVPB Q8 [facility] Last Admin: 05/19/16 06:39 Dose: 100 mls/hr Potassium Chloride 10 meq/ (Sodium Chloride) 1,005 mls @ 120 mls/hr IV .Q8H23M [facility] Last Admin: 05/19/16 04:40 Dose: Not Given Loperamide HCl (Imodium) 4 mg PO PRN PRN PRN Reason: Diarrhea Last Admin: 05/19/16 04:45 Dose: 4 mg Losartan Potassium (Cozaar) 100 mg PO DAILY [facility] Last Admin: 05/18/16 12:10 Dose: Not Given Pantoprazole Sodium (Protonix Inj) 40 mg IVP Q12 [facility] Last Admin: 05/18/16 21:44 Dose: 40 mg - Labs Labs: 05/19/16 06:30 03/18/17 06:30 - Constitutional Appears: Non-toxic - Respiratory Exam Respiratory Exam: Clear to Ausculation Bilateral - Cardiovascular Exam Cardiovascular Exam: RRR - GI/Abdominal Exam GI & Abdominal Exam: Soft, Normal Bowel Sounds. absent: Tenderness - Extremities Exam Extremities Exam: absent: Calf Tenderness - Neurological Exam Neurological Exam: Alert, Oriented x3 - Skin Skin Exam: Intact Assessment and Plan (1) Abdominal pain Assessment & Plan: GAstroenteritis. Improving Status: Acute (2) Acute electrocardiogram changes Status: Acute (3) Vomiting Assessment & Plan: Improving Status: Acute (4) Diarrhea Assessment & Plan: Gastroenteritis. Improving Status: Acute (5) Weakness Assessment & Plan: Improving Status: Acute (6) UTI (urinary tract infection) Status: Acute (7) Melena Assessment & Plan: Doubt melena. Had pepto bismol. Hb is stable. Status: Acute
[2016-05-19] MEDS ORDERED: Potassium Chloride 20 mEq ER Tab PO ONE (10:45)
--- NOTE | 2016-05-19 14:41 | CP.PCM.PN ---
Subjective - Date & Time of Evaluation Date of Evaluation: 05/19/16 Time of Evaluation: 14:45 - Subjective Subjective: Persistent diarrhea. Objective - Vital Signs/Intake and Output Vital Signs (last 24 hours): Temp Pulse Resp BP Pulse Ox 97.7 F 65 20 125/66 96 05/19/16 07:50 05/19/16 07:50 05/19/16 07:50 05/19/16 10:17 05/19/16 07:50 Intake and Output: 05/19/16 05/19/16 06:59 18:59 Intake Total 940 Balance 940 - Medications Medications: Current Medications Amlodipine Besylate (Norvasc) 5 mg PO DAILY [facility] Last Admin: 05/19/16 10:18 Dose: 5 mg Carvedilol (Coreg) 12.5 mg PO Q12 [facility] Last Admin: 05/19/16 10:17 Dose: 12.5 mg Hydrochlorothiazide (Hydrodiuril) 25 mg PO DAILY [facility] Last Admin: 05/19/16 10:18 Dose: 25 mg Metronidazole (Flagyl) 100 mls @ 100 mls/hr IVPB Q8 [facility] Last Admin: 05/19/16 06:39 Dose: 100 mls/hr Potassium Chloride 10 meq/ (Sodium Chloride) 1,005 mls @ 120 mls/hr IV .Q8H23M [facility] Last Admin: 05/19/16 10:37 Dose: 120 mls/hr Meropenem 500 mg/ Sodium (Chloride) 100 mls @ 100 mls/hr IVPB Q6 [facility] Loperamide HCl (Imodium) 4 mg PO PRN PRN PRN Reason: Diarrhea Last Admin: 05/19/16 04:45 Dose: 4 mg Losartan Potassium (Cozaar) 100 mg PO DAILY [facility] Last Admin: 05/19/16 10:20 Dose: 100 mg Pantoprazole Sodium (Protonix Inj) 40 mg IVP Q12 [facility] Last Admin: 05/19/16 10:17 Dose: 40 mg - Labs Labs: 05/19/16 06:30 05/19/16 06:30 - Constitutional Appears: Non-toxic - Head Exam Head Exam: ATRAUMATIC, NORMAL INSPECTION, NORMOCEPHALIC - Eye Exam Eye Exam: EOMI, Normal appearance, PERRL - ENT Exam ENT Exam: Mucous Membranes Moist - Neck Exam Neck Exam: Full ROM, Normal Inspection - Respiratory Exam Respiratory Exam: Clear to Ausculation Bilateral, NORMAL BREATHING PATTERN - Cardiovascular Exam Cardiovascular Exam: REGULAR RHYTHM, +S1, +S2 - GI/Abdominal Exam GI & Abdominal Exam: Soft, Normal Bowel Sounds - Extremities Exam Extremities Exam: Full ROM, Normal Capillary Refill, Normal Inspection - Neurological Exam Neurological Exam: Alert, Awake, Oriented x3 Assessment and Plan (1) Sepsis Assessment & Plan: Continue Normal Saline. Status: Acute (2) UTI (urinary tract infection) Assessment & Plan: UA C&S: E. coli. Meropenem IV as per ID Repeat UA C&S Status: Acute (3) Diarrhea Assessment & Plan: NS 120 ml/hour Status: Acute (4) Hypokalemia Assessment & Plan: 10 meq TID BMP in am Status: Acute (5) Abdominal pain Status: Acute
[2016-05-19] MEDS: Meropenem 500 MG in Sodium Chloride 0.9% 100 ML IVPB SCH (18:37)
[2016-05-20] MEDS: Meropenem 500 MG in Sodium Chloride 0.9% 100 ML IVPB SCH ×4 (00:03→18:15)
[2016-05-20] MEDS: metroNIDAZOLE IV 500 mg/100 ml 100 ML IVPB SCH ×3 (06:08→21:27)
--- NOTE | 2016-05-20 09:31 | CARD ---
APPROVED REPORT EKG Measurement Heart [id number] <Conclusion> Normal sinus rhythm Possible Left atrial enlargement Inferior infarct, age undetermined ST & T wave abnormality, consider anterior ischemia Abnormal ECG
--- NOTE | 2016-05-20 11:00 | CP.PCM.PN ---
Subjective - Date & Time of Evaluation Date of Evaluation: 05/20/16 Time of Evaluation: 10:40 - Subjective Subjective: F/U abdom pain. Ot reports feeling better. Denies naus, vomit, fever, chills, abdom pain, diarrhea, RB, melena, hemoptysis , hematuria. Objective - Vital Signs/Intake and Output Vital Signs (last 24 hours): Temp Pulse Resp BP Pulse Ox 98.2 F 66 20 92/57 L 97 05/20/16 08:38 05/20/16 08:38 05/20/16 08:38 05/20/16 08:38 05/20/16 08:38 Intake and Output: 05/20/16 05/20/16 06:59 18:59 Intake Total 1320 Balance 1320 - Medications Medications: Current Medications Amlodipine Besylate (Norvasc) 5 mg PO DAILY [facility] Last Admin: 05/19/16 10:18 Dose: 5 mg Carvedilol (Coreg) 12.5 mg PO Q12 [facility] Last Admin: 05/19/16 21:14 Dose: 12.5 mg Hydrochlorothiazide (Hydrodiuril) 25 mg PO DAILY [facility] Last Admin: 05/19/16 10:18 Dose: 25 mg Metronidazole (Flagyl) 100 mls @ 100 mls/hr IVPB Q8 [facility] Last Admin: 05/20/16 06:08 Dose: 100 mls/hr Potassium Chloride 10 meq/ (Sodium Chloride) 1,005 mls @ 120 mls/hr IV .Q8H23M [facility] Last Admin: 05/20/16 09:50 Dose: 120 mls/hr Meropenem 500 mg/ Sodium (Chloride) 100 mls @ 100 mls/hr IVPB Q6 [facility] Last Admin: 05/20/16 06:08 Dose: 100 mls/hr Loperamide HCl (Imodium) 4 mg PO PRN PRN PRN Reason: Diarrhea Last Admin: 05/19/16 04:45 Dose: 4 mg Losartan Potassium (Cozaar) 100 mg PO DAILY [facility] Last Admin: 05/19/16 10:20 Dose: 100 mg Pantoprazole Sodium (Protonix Inj) 40 mg IVP Q12 [facility] Last Admin: 05/20/16 09:52 Dose: 40 mg - Labs Labs: 05/19/16 06:30 05/19/16 06:30 - Constitutional Appears: Well - Respiratory Exam Respiratory Exam: Clear to Ausculation Bilateral - Cardiovascular Exam Cardiovascular Exam: RRR - GI/Abdominal Exam GI & Abdominal Exam: Soft, Normal Bowel Sounds. absent: Tenderness - Extremities Exam Extremities Exam: absent: Calf Tenderness - Neurological Exam Neurological Exam: Alert, Awake, Oriented x3 - Psychiatric Exam Psychiatric exam: Normal Affect Assessment and Plan (1) Abdominal pain Assessment & Plan: Gastroenteritis- better Status: Acute (2) Acute electrocardiogram changes Status: Acute (3) Vomiting Assessment & Plan: Gastroenteritis- better. Status: Acute (4) Diarrhea Assessment & Plan: Gastroeneritis- better. Status: Acute (5) Weakness Status: Acute (6) UTI (urinary tract infection) Status: Acute (7) Melena Assessment & Plan: No melena. No GI bleeding. Will see again if needed. Status: Acute
--- NOTE | 2016-05-20 16:23 | CP.PCM.PN ---
Subjective - Date & Time of Evaluation Date of Evaluation: 05/20/16 Time of Evaluation: 09:00 - Subjective Subjective: AFEBRILE LESS DIARRHEA C/S URINE + ESBL CONT MERREM FOR NOW Objective - Vital Signs/Intake and Output Vital Signs (last 24 hours): Temp Pulse Resp BP Pulse Ox 98 F 68 20 113/74 98 05/20/16 15:00 05/20/16 15:00 05/20/16 15:00 05/20/16 15:00 05/20/16 15:00 Intake and Output: 05/20/16 05/20/16 06:59 18:59 Intake Total 1320 Balance 1320 - Medications Medications: Current Medications Amlodipine Besylate (Norvasc) 5 mg PO DAILY [facility] [place] Last Admin: 05/20/16 14:16 Dose: Not Given Carvedilol (Coreg) 12.5 mg PO Q12 [facility] [place] Last Admin: 05/20/16 14:15 Dose: Not Given Hydrochlorothiazide (Hydrodiuril) 25 mg PO DAILY [facility] [place] Last Admin: 05/20/16 14:15 Dose: Not Given Metronidazole (Flagyl) 100 mls @ 100 mls/hr IVPB Q8 [facility] Last Admin: 05/20/16 14:15 Dose: 100 mls/hr Potassium Chloride 10 meq/ (Sodium Chloride) 1,005 mls @ 120 mls/hr IV .Q8H23M [facility] [place] Last Admin: 05/20/16 09:50 Dose: 120 mls/hr Meropenem 500 mg/ Sodium (Chloride) 100 mls @ 100 mls/hr IVPB Q6 [facility] [place] Last Admin: 05/20/16 12:59 Dose: 100 mls/hr Loperamide HCl (Imodium) 4 mg PO PRN PRN PRN Reason: Diarrhea Last Admin: 05/19/16 04:45 Dose: 4 mg Losartan Potassium (Cozaar) 100 mg PO DAILY [facility] [place] Last Admin: 05/20/16 14:15 Dose: Not Given Pantoprazole Sodium (Protonix Inj) 40 mg IVP Q12 [facility] [place] Last Admin: 05/20/16 09:52 Dose: 40 mg - Labs Labs: 05/19/16 06:30 05/19/16 06:30 - Constitutional Appears: Non-toxic, Chronically Ill - Head Exam Head Exam: NORMOCEPHALIC - Eye Exam Eye Exam: PERRL. absent: Scleral icterus - ENT Exam ENT Exam: Mucous Membranes Dry - Neck Exam Neck Exam: absent: Lymphadenopathy - Respiratory Exam Respiratory Exam: Decreased Breath Sounds, Clear to Ausculation Bilateral - Cardiovascular Exam Cardiovascular Exam: REGULAR RHYTHM, +S1, +S2 - GI/Abdominal Exam GI & Abdominal Exam: Distended, Soft, Diminished Bowel Sounds. absent: Tenderness - Rectal Exam Rectal Exam: Deferred - Exam Exam: NORMAL INSPECTION Assessment and Plan (1) Abdominal pain Status: Acute (2) Acute electrocardiogram changes Status: Acute (3) Diarrhea Status: Acute (4) Melena Status: Acute (5) Sepsis Status: Acute (6) Systemic inflammatory response syndrome (SIRS) due to infection Status: Acute (7) UTI (urinary tract infection) Status: Acute (8) Vomiting Status: Acute
--- NOTE | 2016-05-20 21:53 | CP.PCM.PN ---
Subjective - Date & Time of Evaluation Date of Evaluation: 05/20/16 Time of Evaluation: 21:54 - Subjective Subjective: Afebrile, in no apparent distress. She feels better, less diarrhea. Objective - Vital Signs/Intake and Output Vital Signs (last 24 hours): Temp Pulse Resp BP Pulse Ox 98 F 68 20 127/82 98 05/20/16 15:00 05/20/16 15:00 05/20/16 15:00 05/20/16 21:27 05/20/16 15:00 - Medications Medications: Current Medications Amlodipine Besylate (Norvasc) 5 mg PO DAILY [facility] Last Admin: 05/20/16 14:16 Dose: Not Given Carvedilol (Coreg) 12.5 mg PO Q12 [facility] Last Admin: 05/20/16 21:27 Dose: 12.5 mg Hydrochlorothiazide (Hydrodiuril) 25 mg PO DAILY [facility] Last Admin: 05/20/16 14:15 Dose: Not Given Metronidazole (Flagyl) 100 mls @ 100 mls/hr IVPB Q8 [facility] Last Admin: 05/20/16 21:27 Dose: 100 mls/hr Potassium Chloride 10 meq/ (Sodium Chloride) 1,005 mls @ 120 mls/hr IV .Q8H23M [facility] Last Admin: 05/20/16 21:37 Dose: 120 mls/hr Meropenem 500 mg/ Sodium (Chloride) 100 mls @ 100 mls/hr IVPB Q6 [facility] Last Admin: 05/20/16 18:15 Dose: 100 mls/hr Loperamide HCl (Imodium) 4 mg PO PRN PRN PRN Reason: Diarrhea Last Admin: 05/19/16 04:45 Dose: 4 mg Losartan Potassium (Cozaar) 100 mg PO DAILY [facility] Last Admin: 05/20/16 14:15 Dose: Not Given Pantoprazole Sodium (Protonix Inj) 40 mg IVP Q12 [facility] Last Admin: 05/20/16 21:27 Dose: 40 mg - Labs Labs: 05/19/16 06:30 05/19/16 06:30 - Head Exam Head Exam: ATRAUMATIC, NORMAL INSPECTION, NORMOCEPHALIC - Eye Exam Eye Exam: EOMI, Normal appearance, PERRL - ENT Exam ENT Exam: Mucous Membranes Moist, Normal Exam - Neck Exam Neck Exam: Full ROM, Normal Inspection - Respiratory Exam Respiratory Exam: Clear to Ausculation Bilateral, NORMAL BREATHING PATTERN - Cardiovascular Exam Cardiovascular Exam: REGULAR RHYTHM, +S1, +S2 - GI/Abdominal Exam GI & Abdominal Exam: Soft, Normal Bowel Sounds - Back Exam Back Exam: NORMAL INSPECTION - Neurological Exam Neurological Exam: Alert, Awake, Normal Gait, Oriented x3 - Skin Skin Exam: Intact, Normal Color Assessment and Plan (1) Sepsis Status: Acute (2) UTI (urinary tract infection) Assessment & Plan: Continue same treatment. Continue IV Fluids. Continue Meropenem + Flagyl. BMP in AM. Replace Potassium Status: Acute (3) Diarrhea Status: Acute (4) Hypokalemia Status: Acute (5) Abdominal pain Status: Acute
[2016-05-21] MEDS: Meropenem 500 MG in Sodium Chloride 0.9% 100 ML IVPB SCH ×5 (00:45→23:58)
[2016-05-21] MEDS: metroNIDAZOLE IV 500 mg/100 ml 100 ML IVPB SCH ×3 (05:32→21:24)
[2016-05-21 18:46] LABS: CHLORIDE 103 mmol/L (98-107); POTASSIUM 3.7 mmol/L (3.6-5.2); SODIUM 137 mmol/L (132-148)
[2016-05-21 18:49] LABS: BLOOD UREA NITROGEN 10 mg/dL (7-17); CARBON DIOXIDE 22 mmol/L (22-30); GFR AFRICAN-AMERICAN > 60
[2016-05-21 18:50] LABS: CALCIUM 9.2 mg/dl (8.6-10.4); GLUCOSE,RANDOM 113 mg/dL (65-105)
--- NOTE | 2016-05-21 19:56 | CP.PCM.PN ---
Subjective - Date & Time of Evaluation Date of Evaluation: 05/21/16 Time of Evaluation: 19:59 - Subjective Subjective: Patient feeling better, denies diarrhea, vomiting or abdominal pain. Objective - Vital Signs/Intake and Output Vital Signs (last 24 hours): Temp Pulse Resp BP Pulse Ox 98 F 60 20 98/62 L 97 05/21/16 16:00 05/21/16 16:00 05/21/16 16:00 05/21/16 16:00 05/21/16 16:00 Intake and Output: 05/21/16 05/22/16 18:59 06:59 Intake Total 1300 Balance 1300 - Medications Medications: Current Medications Amlodipine Besylate (Norvasc) 5 mg PO DAILY [facility] Last Admin: 05/21/16 10:17 Dose: 5 mg Carvedilol (Coreg) 12.5 mg PO Q12 [facility] Last Admin: 05/21/16 10:17 Dose: 12.5 mg Hydrochlorothiazide (Hydrodiuril) 25 mg PO DAILY [facility] Last Admin: 05/21/16 11:23 Dose: 25 mg Metronidazole (Flagyl) 100 mls @ 100 mls/hr IVPB Q8 [facility] Last Admin: 05/21/16 13:59 Dose: 100 mls/hr Potassium Chloride 10 meq/ (Sodium Chloride) 1,005 mls @ 120 mls/hr IV .Q8H23M [facility] Last Admin: 05/21/16 15:57 Dose: Not Given Meropenem 500 mg/ Sodium (Chloride) 100 mls @ 100 mls/hr IVPB Q6 [facility] Last Admin: 05/21/16 17:43 Dose: 100 mls/hr Loperamide HCl (Imodium) 4 mg PO PRN PRN PRN Reason: Diarrhea Last Admin: 05/19/16 04:45 Dose: 4 mg Losartan Potassium (Cozaar) 100 mg PO DAILY [facility] Last Admin: 05/21/16 11:24 Dose: 100 mg Pantoprazole Sodium (Protonix Inj) 40 mg IVP Q12 [facility] Last Admin: 05/21/16 10:18 Dose: 40 mg - Labs Labs: 05/19/16 06:30 05/21/16 18:31 - Constitutional Appears: Well, Non-toxic, No Acute Distress - Head Exam Head Exam: ATRAUMATIC, NORMAL INSPECTION, NORMOCEPHALIC - Eye Exam Eye Exam: EOMI, Normal appearance, PERRL - ENT Exam ENT Exam: Mucous Membranes Moist, Normal Exam - Neck Exam Neck Exam: Full ROM, Normal Inspection - Respiratory Exam Respiratory Exam: Clear to Ausculation Bilateral, NORMAL BREATHING PATTERN - Cardiovascular Exam Cardiovascular Exam: REGULAR RHYTHM, +S1, +S2 - GI/Abdominal Exam GI & Abdominal Exam: Soft, Normal Bowel Sounds - Extremities Exam Extremities Exam: Full ROM, Normal Capillary Refill, Normal Inspection - Back Exam Back Exam: NORMAL INSPECTION - Neurological Exam Neurological Exam: Alert, Awake, Oriented x3 - Psychiatric Exam Psychiatric exam: Normal Affect, Normal Mood - Skin Skin Exam: Dry, Intact, Normal Color Assessment and Plan (1) UTI (urinary tract infection) Status: Acute (2) Sepsis Assessment & Plan: Continue current treatment. D/C IV fluids, patient tolearating diet very well, denies diarrhea. CBC Diff and BMP in am. Status: Acute (3) Diarrhea Status: Acute (4) Hypokalemia Status: Acute (5) Abdominal pain Status: Acute
[2016-05-22] MEDS: metroNIDAZOLE IV 500 mg/100 ml 100 ML IVPB SCH ×3 (05:04→20:59)
[2016-05-22] MEDS: Meropenem 500 MG in Sodium Chloride 0.9% 100 ML IVPB SCH ×4 (06:04→23:52)
[2016-05-22 07:23] LABS: BASO % 0.4 % (0.0-2.0); EOS % 0.1 % (0.0-4.0); HEMATOCRIT 35.2 % (34.0-47.0); LYMPH % 40.4 % (20.0-40.0); MEAN CELL VOLUME 85.1 fL (81.0-99.0); MEAN CORPUSCULAR HEMOGLOBIN 29.1 pg (27.0-31.0); MEAN CORPUSCULAR HGB CONC 34.2 g/dL (33.0-37.0); MEAN PLATELET VOLUME 9.6 fL (7.2-11.7); MONO # 0.7 K/uL (0.0-0.8); MONO % 13.8 % (0.0-10.0); NRBC % 0.1 % (0.0-2.0); RED CELL DISTRIBUTION WIDTH 13.3 % (11.5-14.5); WHITE BLOOD COUNT 4.9 K/uL (4.8-10.8)
[2016-05-22 07:36] LABS: CHLORIDE 103 mmol/L (98-107)
[2016-05-22 07:37] LABS: POTASSIUM 3.7 mmol/L (3.6-5.2); SODIUM 139 mmol/L (132-148)
[2016-05-22 07:39] LABS: GFR AFRICAN-AMERICAN > 60
[2016-05-22 07:40] LABS: BLOOD UREA NITROGEN 11 mg/dL (7-17); CALCIUM 9.2 mg/dl (8.6-10.4); CARBON DIOXIDE 26 mmol/L (22-30); GLUCOSE,RANDOM 84 mg/dL (65-105)
--- NOTE | 2016-05-22 12:22 | CP.PCM.PN ---
Subjective - Date & Time of Evaluation Date of Evaluation: 05/22/16 Time of Evaluation: 08:00 - Subjective Subjective: impoving c diff neg Objective - Vital Signs/Intake and Output Vital Signs (last 24 hours): Temp Pulse Resp BP Pulse Ox 98 F 62 17 106/70 98 05/22/16 07:40 05/22/16 07:40 05/22/16 07:40 05/22/16 09:48 05/22/16 07:40 Intake and Output: 05/22/16 05/22/16 06:59 18:59 Intake Total 920 Balance 920 - Medications Medications: Current Medications Amlodipine Besylate (Norvasc) 5 mg PO DAILY [facility] Last Admin: 05/22/16 11:34 Dose: Not Given Carvedilol (Coreg) 12.5 mg PO Q12 [facility] Last Admin: 05/22/16 09:48 Dose: 12.5 mg Hydrochlorothiazide (Hydrodiuril) 25 mg PO DAILY [facility] Last Admin: 05/22/16 09:48 Dose: 25 mg Metronidazole (Flagyl) 100 mls @ 100 mls/hr IVPB Q8 [facility] Last Admin: 05/22/16 05:04 Dose: 100 mls/hr Meropenem 500 mg/ Sodium (Chloride) 100 mls @ 100 mls/hr IVPB Q6 [facility] Last Admin: 05/22/16 11:44 Dose: 100 mls/hr Loperamide HCl (Imodium) 4 mg PO PRN PRN PRN Reason: Diarrhea Last Admin: 05/19/16 04:45 Dose: 4 mg Losartan Potassium (Cozaar) 100 mg PO DAILY [facility] Last Admin: 05/22/16 11:33 Dose: Not Given Pantoprazole Sodium (Protonix Inj) 40 mg IVP Q12 [facility] Last Admin: 05/22/16 09:46 Dose: 40 mg - Labs Labs: 05/22/16 07:09 05/22/16 07:09 - Constitutional Appears: No Acute Distress - Head Exam Head Exam: NORMOCEPHALIC - Eye Exam Eye Exam: absent: Scleral icterus - ENT Exam ENT Exam: Mucous Membranes Dry - Neck Exam Neck Exam: absent: Lymphadenopathy - Respiratory Exam Respiratory Exam: Decreased Breath Sounds, Clear to Ausculation Bilateral - Cardiovascular Exam Cardiovascular Exam: REGULAR RHYTHM - GI/Abdominal Exam GI & Abdominal Exam: Distended, Soft Assessment and Plan (1) Abdominal pain Status: Acute (2) Acute electrocardiogram changes Status: Acute (3) Diarrhea Status: Acute (4) Melena Status: Acute (5) Sepsis Status: Acute (6) Systemic inflammatory response syndrome (SIRS) due to infection Status: Acute (7) UTI (urinary tract infection) Status: Acute (8) Vomiting Status: Acute
[2016-05-22 17:26] LABS: RBC URINE < 1 /hpf (0-3); URINE BACTERIA RARE (<OCC); URINE BILIRUBIN NEGATIVE (NEGATIVE); URINE BLOOD NEGATIVE (NEGATIVE); URINE COLOR Straw (YELLOW); URINE GLUCOSE (UA) NORMAL (Normal); URINE KETONE NEGATIVE (NEGATIVE); URINE LEUKOCYTE ESTERASE TRACE Leu/uL (Negative); URINE PROTEIN NEGATIVE (NEGATIVE); URINE UROBILINOGEN NORMAL mg/dL (0.2-1.0); WBC URINE < 1 /hpf (0-5)
--- NOTE | 2016-05-22 17:26 | CP.PCM.PN ---
Subjective - Date & Time of Evaluation Date of Evaluation: 05/22/16 Time of Evaluation: 17:24 - Subjective Subjective: Patient is improving and tolerating diet very well. Objective - Vital Signs/Intake and Output Vital Signs (last 24 hours): Temp Pulse Resp BP Pulse Ox 98.3 F 61 18 116/72 97 05/22/16 15:08 05/22/16 15:08 05/22/16 15:08 05/22/16 15:08 05/22/16 15:08 Intake and Output: 05/22/16 05/22/16 06:59 18:59 Intake Total 920 550 Balance 920 550 - Medications Medications: Current Medications Amlodipine Besylate (Norvasc) 5 mg PO DAILY [facility] Last Admin: 05/22/16 11:34 Dose: Not Given Carvedilol (Coreg) 12.5 mg PO Q12 [facility] Last Admin: 05/22/16 09:48 Dose: 12.5 mg Hydrochlorothiazide (Hydrodiuril) 25 mg PO DAILY [facility] Last Admin: 05/22/16 09:48 Dose: 25 mg Metronidazole (Flagyl) 100 mls @ 100 mls/hr IVPB Q8 [facility] Last Admin: 05/22/16 14:04 Dose: 100 mls/hr Meropenem 500 mg/ Sodium (Chloride) 100 mls @ 100 mls/hr IVPB Q6 [facility] Last Admin: 05/22/16 11:44 Dose: 100 mls/hr Loperamide HCl (Imodium) 4 mg PO PRN PRN PRN Reason: Diarrhea Last Admin: 05/19/16 04:45 Dose: 4 mg Losartan Potassium (Cozaar) 100 mg PO DAILY [facility] Last Admin: 05/22/16 11:33 Dose: Not Given Pantoprazole Sodium (Protonix Inj) 40 mg IVP Q12 [facility] Last Admin: 05/22/16 09:46 Dose: 40 mg - Labs Labs: 05/22/16 07:09 05/22/16 07:09 - Constitutional Appears: Well, Non-toxic, No Acute Distress - Head Exam Head Exam: ATRAUMATIC, NORMAL INSPECTION, NORMOCEPHALIC - Eye Exam Eye Exam: EOMI, Normal appearance, PERRL - ENT Exam ENT Exam: Mucous Membranes Moist, Normal Exam - Neck Exam Neck Exam: Full ROM, Normal Inspection - Respiratory Exam Respiratory Exam: Clear to Ausculation Bilateral, NORMAL BREATHING PATTERN - Cardiovascular Exam Cardiovascular Exam: REGULAR RHYTHM, +S1, +S2 - GI/Abdominal Exam GI & Abdominal Exam: Soft, Normal Bowel Sounds - Extremities Exam Extremities Exam: Full ROM, Normal Capillary Refill, Normal Inspection - Back Exam Back Exam: NORMAL INSPECTION - Neurological Exam Neurological Exam: Alert, Awake, Normal Gait, Oriented x3 - Psychiatric Exam Psychiatric exam: Normal Affect, Normal Mood Assessment and Plan (1) UTI (urinary tract infection) Assessment & Plan: Continue same treatment. Possible discharge home in am. Needs ID clearance for discharge. Status: Acute (2) Sepsis Status: Acute (3) Diarrhea Status: Acute (4) Hypokalemia Status: Acute (5) Abdominal pain Status: Acute
[2016-05-23 00:20] VITALS: RESP 20
[2016-05-23] MEDS: metroNIDAZOLE IV 500 mg/100 ml 100 ML IVPB SCH ×2 (04:59→14:01)
[2016-05-23] MEDS: Meropenem 500 MG in Sodium Chloride 0.9% 100 ML IVPB SCH ×3 (06:08→18:06)
[2016-05-23 16:08] VITALS: BP 103/72; PULSE 65; TEMP 97.6; O2SAT 96
--- NOTE | 2016-05-23 18:28 | CP.PCM.PN ---
Subjective - Date & Time of Evaluation Date of Evaluation: 05/23/16 Time of Evaluation: 08:00 - Subjective Subjective: feels well on day 5 IV rx for ESBL UTI may go home on PO Macrobid to complete total 10-14 days with follow up by PMD denies fever or abd complaints Objective - Vital Signs/Intake and Output Vital Signs (last 24 hours): Temp Pulse Resp BP Pulse Ox 97.6 F 65 20 103/72 96 05/23/16 16:02 05/23/16 16:02 05/23/16 16:02 05/23/16 16:02 05/23/16 16:02 - Medications Medications: Current Medications Amlodipine Besylate (Norvasc) 5 mg PO DAILY [facility] Last Admin: 05/23/16 09:58 Dose: 5 mg Carvedilol (Coreg) 12.5 mg PO Q12 [facility] Last Admin: 05/23/16 09:58 Dose: 12.5 mg Hydrochlorothiazide (Hydrodiuril) 25 mg PO DAILY [facility] Last Admin: 05/23/16 11:23 Dose: 25 mg Meropenem 500 mg/ Sodium (Chloride) 100 mls @ 100 mls/hr IVPB Q6 [facility] Last Admin: 05/23/16 18:06 Dose: 100 mls/hr Loperamide HCl (Imodium) 4 mg PO PRN PRN PRN Reason: Diarrhea Last Admin: 05/19/16 04:45 Dose: 4 mg Losartan Potassium (Cozaar) 100 mg PO DAILY [facility] Last Admin: 05/23/16 11:23 Dose: 100 mg Pantoprazole Sodium (Protonix Inj) 40 mg IVP Q12 [facility] Last Admin: 05/23/16 09:59 Dose: 40 mg - Labs Labs: 05/22/16 07:09 05/22/16 07:09 - Constitutional Appears: Non-toxic, Chronically Ill - Head Exam Head Exam: NORMOCEPHALIC - Eye Exam Eye Exam: absent: Scleral icterus - ENT Exam ENT Exam: Mucous Membranes Dry - Neck Exam Neck Exam: absent: Lymphadenopathy - Respiratory Exam Respiratory Exam: Decreased Breath Sounds, Clear to Ausculation Bilateral - Cardiovascular Exam Cardiovascular Exam: REGULAR RHYTHM, +S1, +S2 - GI/Abdominal Exam GI & Abdominal Exam: Distended, Soft. absent: Tenderness - Rectal Exam Rectal Exam: Deferred - Exam Exam: NORMAL INSPECTION - Extremities Exam Extremities Exam: absent: Pedal Edema - Back Exam Back Exam: absent: CVA tenderness (L), CVA tenderness (R) - Neurological Exam Neurological Exam: Alert, Awake, Oriented x3 Assessment and Plan (1) Abdominal pain Status: Acute (2) Acute electrocardiogram changes Status: Acute (3) Diarrhea Status: Acute (4) Melena Status: Acute (5) Sepsis Status: Acute (6) Systemic inflammatory response syndrome (SIRS) due to infection Status: Acute (7) UTI (urinary tract infection) Status: Acute (8) Vomiting Status: Acute
--- NOTE | 2016-05-23 20:02 | CP.PCM.DIS ---
Provider - Provider Date of Admission: 05/17/16 12:13 Attending physician: Handy Estevez MD Time Spent in preparation of Discharge (in minutes): 30 Diagnosis - Discharge Diagnosis (1) UTI (urinary tract infection) Status: Resolved Priority: High Comment: ESBL UTI (2) Sepsis Status: Resolved (3) Diarrhea Status: Resolved (4) Hypokalemia Status: Resolved (5) Abdominal pain Status: Resolved Priority: High (6) Hypotension Status: Resolved Priority: High Hospital Course - Lab Results Lab Results: Micro Results 05/19/16 Unknown Stool Ova and Parasite Concentrate Exam - Final 05/19/16 19:00 Urine,Clean Catch Urine Culture - Final No Growth (<1,000 CFU/ML) 05/17/16 Unknown Stool Stool Culture - Final NO SALMONELLA, SHIGELLA OR CAMPYLOBACTER ISOLATED. 05/17/16 Unknown Urine,Clean Catch Urine Culture - Final Escherichia Coli 05/17/16 Unknown Stool Ova and Parasite Concentrate Exam - Final Most Recent Lab Values WBC 4.9 K/uL (4.8-10.8) 05/22/16 07:09 RBC 4.14 Mil/uL (3.80-5.20) 05/22/16 07:09 Hgb 12.0 g/dL (11.0-16.0) 05/22/16 07:09 Hct 35.2 % (34.0-47.0) 05/22/16 07:09 MCV 85.1 fL (81.0-99.0) 05/22/16 07:09 MCH 29.1 pg (27.0-31.0) 05/22/16 07:09 MCHC 34.2 g/dL (33.0-37.0) 05/22/16 07:09 RDW 13.3 % (11.5-14.5) 05/22/16 07:09 Plt Count 173 K/uL (130-400) 05/22/16 07:09 MPV 9.6 fL (7.2-11.7) 05/22/16 07:09 Neut % (Auto) 45.3 % (50.0-75.0) L 05/22/16 07:09 Lymph % (Auto) 40.4 % (20.0-40.0) H 05/22/16 07:09 [place] % (Auto) 13.8 % (0.0-10.0) H 05/22/16 07:09 Eos % (Auto) 0.1 % (0.0-4.0) 05/22/16 07:09 Baso % (Auto) 0.4 % (0.0-2.0) 05/22/16 07:09 Neut # 2.2 K/uL (1.8-7.0) 05/22/16 07:09 Lymph # 2.0 K/uL (1.0-4.3) 05/22/16 07:09 [place] # 0.7 K/uL (0.0-0.8) 05/22/16 07:09 Eos # 0.0 K/uL (0.0-0.7) 05/22/16 07:09 Baso # 0.0 K/uL (0.0-0.2) 05/22/16 07:09 Neutrophils % (Manual) 70 % (50-75) 05/18/16 06:02 Band Neutrophils % 7 % (0-2) H 05/18/16 06:02 Lymphocytes % (Manual) 17 % (20-40) L 05/18/16 06:02 Reactive Lymphs % 2 % (0-0) H 05/17/16 11:20 Monocytes % (Manual) 6 % (0-10) 05/18/16 06:02 Platelet Estimate Normal (NORMAL) 05/18/16 06:02 RBC Morphology Normal 05/18/16 06:02 Hypochromasia (manual) Slight 05/16/16 16:06 Microcytosis (manual) Slight 05/16/16 16:06 Tear Drop Cells Slight 05/16/16 16:06 Sodium 139 mmol/L (132-148) 05/22/16 07:09 Potassium 3.7 mmol/L (3.6-5.2) 05/22/16 07:09 Chloride 103 mmol/L (98-107) 05/22/16 07:09 Carbon Dioxide 26 mmol/L (22-30) 05/22/16 07:09 Anion Gap 14 (10-20) 05/22/16 07:09 BUN 11 mg/dL (7-17) 05/22/16 07:09 Creatinine 0.6 MG/DL (0.7-1.2) L 05/22/16 07:09 Est GFR ( Amer) > 60 05/22/16 07:09 Est GFR (Non-Af Amer) > 60 05/22/16 07:09 Random Glucose 84 mg/dL (65-105) 05/22/16 07:09 Lactic Acid 1.3 mmol/L (0.7-2.1) 05/17/16 11:20 Calcium 9.2 mg/dl (8.6-10.4) 05/22/16 07:09 Total Bilirubin 0.8 mg/dL (0.2-1.3) 05/17/16 11:20 AST 22 U/L (14-36) 05/17/16 11:20 ALT 28 U/L (9-52) 05/17/16 11:20 Alkaline Phosphatase 89 U/L (38-126) 05/17/16 11:20 Total Creatine Kinase 50 U/L (30-135) 05/17/16 06:09 CK-MB (Mass) 0.66 ng/mL (0.0-3.38) 05/17/16 06:09 Troponin I 0.0230 ng/mL (0.00-0.120) 05/16/16 16:06 Troponin I, Quant 0.0240 ng/mL (0.00-0.120) 05/17/16 06:09 Total Protein 7.3 g/dL (6.3-8.3) 05/17/16 11:20 Albumin 4.0 g/dL (3.5-5.0) 05/17/16 11:20 Globulin 3.4 gm/dL (2.2-3.9) 05/17/16 11:20 Albumin/Globulin Ratio 1.2 (1.0-2.1) 05/17/16 11:20 Lipase 83 U/L (23-300) 05/17/16 16:04 Urine Color Straw (YELLOW) 05/22/16 17:01 Urine Clarity Clear (Clear) 05/22/16 17:01 Urine pH 6.0 (5.0-8.0) 05/22/16 17:01 Ur Specific [place] 1.005 (1.003-1.030) 05/22/16 17:01 Urine Protein Negative mg/dL (NEGATIVE) 05/22/16 17:01 Urine Glucose (UA) Normal mg/dL (Normal) 05/22/16 17:01 Urine Ketones Negative mg/dL (NEGATIVE) 05/22/16 17:01 Urine Blood Negative (NEGATIVE) 05/22/16 17:01 Urine Nitrate Negative (NEGATIVE) 05/22/16 17:01 Urine Bilirubin Negative (NEGATIVE) 05/22/16 17:01 Urine Urobilinogen Normal mg/dL (0.2-1.0) 05/22/16 17:01 Ur Leukocyte Esterase Trace [place]/uL (Negative) 05/22/16 17:01 Urine WBC (Auto) < 1 /hpf (0-5) 05/22/16 17:01 Urine RBC (Auto) < 1 /hpf (0-3) 05/22/16 17:01 Ur Squamous Epith Cells < 1 /hpf (0-5) 05/22/16 17:01 Urine Bacteria Rare (<OCC) 05/22/16 17:01 CSF Enterovirus Source Stool (()) 05/18/16 11:03 CSF Enterovirus RNA Qual Not detected (Not Detected) 05/18/16 11:03 Stool Occult Blood Negative (NEGATIVE) 05/17/16 22:39 Stool Leukocytes, Qual Negative (NEGATIVE) 05/17/16 Unknown Stl Cryptosporidium Ag Not detected (Not detected) 05/18/16 11:03 C. difficile Ag & Toxin Negative (NEGATIVE) 05/18/16 Unknown Cryptosp/Giardia Source Stool (()) 05/18/16 11:03 E. histolytica Antigen Not detected (()) 05/18/16 11:03 Hepatitis A IgM Ab Negative (NEGATIVE) 05/18/16 20:01 Hep Bs Antigen Negative (NEGATIVE) 05/18/16 20:01 Hep B Core IgM Ab Negative (NEGATIVE) 05/18/16 20:01 Hepatitis C Antibody Negative (NEGATIVE) 05/18/16 20:01 HIV 1&2 Antibody Screen Negative (NEGATIVE) 05/18/16 20:01 Influenza Typ A,B (EIA) Negative for flu a/b (NEGATIVE) 05/18/16 Unknown - Hospital Course Hospital Course: 70 years old female with PMHx significant for HTN. Patient presented to PMD office with fever, chills, diarrhea and hypotension. Patient sent to ER by ambulance for further evaluation and treatment. Initial evaluation showed Metabolic acidosis, hypokalemia and hypotension. Patient started on IV fluids and IV Rocephin. Blood cultures and urine cultures ordered. GI and ID evaluation requested. Stool test for C. Diff., ordered. Patient started on IV Flagyl as per ID. Urine culture showed ESBL (E. coli) UTI. Patient started on IV Meropenem as per ID. Patient conditioned improved. Repeated Urine culture showed no growth. Patient cleared by ID for discharge home and to follow up with PMD. Macrobid PO BID x 10 days. Discharge Exam - Head Exam Head Exam: ATRAUMATIC, NORMAL INSPECTION, NORMOCEPHALIC - Eye Exam Eye Exam: EOMI, PERRL - ENT Exam ENT Exam: Mucous Membranes Moist - Neck Exam Neck exam: Full Rom - Respiratory Exam Respiratory Exam: Clear to PA & Lateral, NORMAL BREATHING PATTERN, UNREMARKABLE - Cardiovascular Exam Cardiovascular Exam: REGULAR RHYTHM - GI/Abdominal Exam GI & Abdominal Exam: Normal Bowel Sounds, Unremarkable - Extremities Exam Extremities exam: full ROM - Neurological Exam Neurological exam: Alert, Normal Gait, Oriented x3 - Psychiatric Exam Psychiatric exam: Normal Affect, Normal Mood - Skin Skin Exam: Intact Discharge Plan - Follow Up Plan Condition: STABLE Disposition: HOME/ ROUTINE Patient education suggested?: No
== END 2016-05-23 20:30 | disposition home or self-care (01) | DRG 872 ==
LOC: C.ER 15:31 → C.9E 18:33 → C.6T 19:26 → OBSVTOIN 05-17 12:13 → C.6T 05-19 14:32
PROVIDERS: ADMIT Internal Medicine; ATTEND Internal Medicine
DX: A41.9 Sepsis, unspecified organism (principal); N39.0 Urinary tract infection, site not specified; E87.2 Acidosis; B96.20 Unspecified Escherichia coli [E. coli] as the cause of diseases classified elsewhere; Z16.12 Extended spectrum beta lactamase (ESBL) resistance; K52.9 Noninfective gastroenteritis and colitis, unspecified; E87.6 Hypokalemia; E86.0 Dehydration; I10 Essential (primary) hypertension; M19.90 Unspecified osteoarthritis, unspecified site; H26.9 Unspecified cataract; Z90.710 Acquired absence of both cervix and uterus